=== PATIENT | female | born 1955 | race American Indian/Alaskan Native ===

== ENCOUNTER → 2019-12-06 15:04 | Outpatient (BNVA) | payer MEDICARE, OTHER, SELFPAY | PROVIDERS: Family Provider Registered Nurse; PCP Family Medicine; Visit Provider Registered Nurse | DX: I10 Essential (primary) hypertension (principal); E78.5 Hyperlipidemia, unspecified; E03.9 Hypothyroidism, unspecified; M54.6 Pain in thoracic spine; F41.1 Generalized anxiety disorder; L23.7 Allergic contact dermatitis due to plants, except food | CPT/HCPCS: 80053; 80061; 84443; 85025 ==

== ENCOUNTER → 2020-06-19 15:00 | Outpatient (BNVA) | payer MEDICARE, OTHER, SELFPAY | PROVIDERS: Family Provider Registered Nurse; PCP Family Medicine; Visit Provider Registered Nurse | DX: I10 Essential (primary) hypertension (principal); Z23 Encounter for immunization; E03.9 Hypothyroidism, unspecified; E78.5 Hyperlipidemia, unspecified; Z12.31 Encounter for screening mammogram for malignant neoplasm of breast; Z12.11 Encounter for screening for malignant neoplasm of colon; Z12.12 Encounter for screening for malignant neoplasm of rectum; M54.9 Dorsalgia, unspecified; G89.29 Other chronic pain | CPT/HCPCS: 80053; 80061; 84443; 85025 ==

== ENCOUNTER 2020-12-04 13:53 | Outpatient (CLI) | payer MEDICARE, OTHER, SELFPAY ==
--- NOTE | 2020-12-04 14:04 | XR_ITS ---
WS: [id number] RIGHT CLAVICLE TECHNIQUE: 2 views of the right clavicle. CLINICAL INFORMATION: M89.8X1 - Other specified disorders of bone, shoulder COMPARISON: None. FINDINGS: Mild degenerative arthritis AC joint. Mild downsloping of the acromion. Distal clavicle is normal. No rmal glenohumeral joint. No acute fractures.. XR/[place] [id number] IMPRESSION: Mild degenerative arthritis AC joint. No acute fractures.
--- NOTE | 2020-12-04 14:30 | CT_ITS ---
WS: [id number] CT CHEST TECHNIQUE: Noncontrast CT of the chest with coronal and sagittal reformatted images. CLINICAL INFORMATION: M89.8X1 - Other specified disorders of bone, shoulder COMPARISON: None. DLP: 861.[address] scans at [facility] use at least one of these dose optimization techniques: automat ed exposure control; mA and/or kV adjustment per patient size (includes targeted exams where dose is matched to clinical indication); or iterative reconstruction. FINDINGS: Mild chronic emphysematous changes. No acute pulmonary infiltrates. No focal consolidation or pleural fluid. No mediastinal or hilar lymphadenopathy. Normal caliber thoracic aorta. No axillary lymphaden opathy. Cholecystectomy clips. Normal GE junction. Adrenal glands are normal. Right clavicle is normal in [place]. No evidence of underlying soft tissue mass or lesion. Normal sternoclavicular joint. CT/CT chest wo con [id number] IMPRESSION: 1. No evidence of soft tissue mass or lesion at the sternoclavicular joint. 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 No acute right clavicular fractures. 2. Mild chronic emphysematous changes. No acute pulmonary infiltrates. 3. No mediastinal or hilar lymphadenopathy. 4. Cholecystectomy clips.
== END 2020-12-04 13:54 | disposition home or self-care (01) ==
PROVIDERS: PCP Registered Nurse; Visit Provider Registered Nurse
DX: M89.8X1 Other specified disorders of bone, shoulder (principal); M19.011 Primary osteoarthritis, right shoulder
CPT/HCPCS: 71250; 73000

== ENCOUNTER → 2021-10-08 08:59 | Outpatient (BNVA) | payer MEDICARE, OTHER, SELFPAY | PROVIDERS: PCP Registered Nurse; Visit Provider Registered Nurse | DX: I10 Essential (primary) hypertension (principal); M54.9 Dorsalgia, unspecified; G89.29 Other chronic pain; E03.9 Hypothyroidism, unspecified; Z63.6 Dependent relative needing care at home | CPT/HCPCS: 80053; 84443; 85025 ==

== ENCOUNTER → 2021-11-08 10:05 | Outpatient (BNVA) | payer MEDICARE, OTHER, SELFPAY | PROVIDERS: PCP Registered Nurse; Visit Provider Registered Nurse | DX: E03.9 Hypothyroidism, unspecified (principal) | CPT/HCPCS: 84443 ==

== ENCOUNTER → 2022-05-13 13:59 | Outpatient (BNVA) | payer MEDICARE, OTHER, SELFPAY | PROVIDERS: PCP Registered Nurse; Visit Provider Registered Nurse | DX: E03.9 Hypothyroidism, unspecified (principal); I10 Essential (primary) hypertension; R53.83 Other fatigue; R73.9 Hyperglycemia, unspecified | CPT/HCPCS: 80053; 83036; 84443 ==

== ENCOUNTER → 2022-08-21 11:19 | Outpatient (BNVA) | payer MEDICARE, OTHER, SELFPAY | PROVIDERS: PCP Registered Nurse; Visit Provider Registered Nurse | DX: E03.9 Hypothyroidism, unspecified (principal); I10 Essential (primary) hypertension | CPT/HCPCS: 80053; 84443; 85025 ==

== ENCOUNTER 2022-11-15 14:27 | Outpatient (CLI) | payer MEDICARE, OTHER, SELFPAY ==
--- NOTE | 2022-11-15 14:30 | XR_ITS ---
WS: [id number] DEXA (DUAL ENERGY X-RAY ABSORPTIOMETRY) Bone mineral density was performed using a [employer] machine. HISTORY: M81.0 - Age-related osteoporosis without current pathological fracture COMPARISON: None available. Lumbar spine BMD (L1-L4): 1.048 g/cm2 T score: -1.1 Z score: -0.3 Total hip BMD: Left: 0.947 g/cm2. T score: -0.5 Z score: 0.4 Right: 1.037 g/cm2. T score: 0.2 Z score: 1.1 10 year probability of a major osteoporotic fracture is 10.4%. XR/XR DEXA axial skeleton* [id number] IMPRESSION: OSTEOPENIA based upon the WHO classification for females.
--- NOTE | 2022-11-15 14:34 | MM_ITS ---
WS: [id number] BILATERAL 3D TOMOSYNTHESIS DIGITAL SCREENING MAMMOGRAPHY WITH CAD CLINICAL INFORMATION: Z12.31 - Encounter for screening mammogram for malignant ... HISTORY: Screening mammogram. No current complaints. COMPARISON: 2013 TECHNIQUE: Bilateral CC and MLO views. FINDINGS: The breasts are composed of heterogeneous fibroglandular density tissue, which can limit the detectio n of small underlying mass lesions. No suspicious mass, asymmetry, calcifications, or architectural d istortion. No evidence of malignancy. Punctate and lucent centered calcifications. MM/[place] [id number] IMPRESSION: BI-RADS: 2-Benign FOLLOW UP: 1 Year Follow-up Recommend return to annual screening mammography.
== END 2022-11-15 14:28 | disposition home or self-care (01) ==
PROVIDERS: PCP Registered Nurse; Visit Provider Registered Nurse
DX: Z12.31 Encounter for screening mammogram for malignant neoplasm of breast (principal); M81.0 Age-related osteoporosis without current pathological fracture; M85.80 Other specified disorders of bone density and structure, unspecified site
CPT/HCPCS: 77063; 77067; 77080

== ENCOUNTER → 2024-01-29 13:49 | Outpatient (BNVA) | payer MEDICARE, OTHER, SELFPAY | PROVIDERS: PCP Registered Nurse; Referring Provider Registered Nurse; Visit Provider Nurse Practitioner | DX: L03.114 Cellulitis of left upper limb (principal); S60.812A Abrasion of left wrist, initial encounter; X58.XXXA Exposure to other specified factors, initial encounter | CPT/HCPCS: 99204 ==

== ENCOUNTER → 2024-02-06 09:30 | Outpatient (BNVA) | payer MEDICARE, OTHER, SELFPAY | PROVIDERS: PCP Registered Nurse; Visit Provider Nurse Practitioner | DX: L03.114 Cellulitis of left upper limb (principal); S60.812A Abrasion of left wrist, initial encounter; X58.XXXA Exposure to other specified factors, initial encounter | CPT/HCPCS: 99213 ==

== ENCOUNTER 2024-03-19 10:44 | Outpatient (CLI) | payer MEDICARE, OTHER, SELFPAY ==
[2024-03-19 12:30] LABS: Thyroid Stimulating Hormone 0.68 uIU/mL (0.27-4.20)
== END 2024-03-19 10:45 | disposition home or self-care (01) ==
LOC: RAD 10:46 → LAB 10:50
PROVIDERS: PCP Registered Nurse; Visit Provider Registered Nurse
DX: E03.9 Hypothyroidism, unspecified (principal)
CPT/HCPCS: 36415; 84443

== ENCOUNTER → 2024-07-01 11:45 | Outpatient (BNVA) | payer MEDICARE, OTHER, SELFPAY | PROVIDERS: PCP Registered Nurse; Visit Provider Registered Nurse | DX: I10 Essential (primary) hypertension (principal) | CPT/HCPCS: 80053; 80061; 84443; 85025 ==

== ENCOUNTER → 2024-07-08 09:36 | Outpatient (BNVA) | payer MEDICARE, OTHER, SELFPAY | PROVIDERS: PCP Registered Nurse; Visit Provider Registered Nurse | DX: R73.9 Hyperglycemia, unspecified (principal) | CPT/HCPCS: 83036 ==

== ENCOUNTER 2024-10-06 10:19 | Outpatient (CLI) | payer MEDICARE, OTHER, SELFPAY ==
--- NOTE | 2024-10-06 10:20 | MM_ITS ---
WS: [id number] VIEWS: MLO and CC views both breasts. 3D digital tomosynthesis is also included in this exam. Comparison made with prior exam of 11/15/2022, 07/06/2013.. Findings: The breasts are heterogeneously dense, which may obscure small masses. No sign of suspicious mass, tumor calcification or architectural distortion. MM/MM scr BI tomosynthesis [id number] Impression: BI-RADS: 2 - Benign FOLLOW-UP: 1 Year Follow-up This mammogram was also analyzed by the Computer A[employer] Detection [employer].
== END 2024-10-06 10:20 | disposition home or self-care (01) ==
PROVIDERS: PCP Registered Nurse; Visit Provider Registered Nurse
DX: Z12.31 Encounter for screening mammogram for malignant neoplasm of breast (principal); R92.333 Mammographic heterogeneous density, bilateral breasts
CPT/HCPCS: 77063; 77067

== ENCOUNTER → 2025-02-17 11:10 | Outpatient (BNVA) | payer MEDICARE, OTHER, SELFPAY | PROVIDERS: PCP Registered Nurse; Visit Provider Registered Nurse | DX: Z13.1 Encounter for screening for diabetes mellitus (principal); I10 Essential (primary) hypertension | CPT/HCPCS: 80053; 83036; 84443 ==